=== PATIENT | male | born 1995 | race Caucasian/White ===

== ENCOUNTER 2024-10-26 19:13 | Emergency (ER) | payer OTHER ==
[2024-10-26 19:48] VITALS: BP 145/100; PULSE 107; RESP 19; TEMP 98.1; BMI 21.9
== END 2024-10-26 19:52 | disposition home or self-care (01) ==
LOC: FER 19:13
PROC: 0HQ1XZZ Repair Face Skin, External Approach (ICD-10-PCS; principal; 2024-10-26)
DX: S01.81XA Laceration without foreign body of other part of head, initial encounter (principal); W22.01XA Walked into wall, initial encounter
CPT/HCPCS: 99282-25